=== PATIENT | male | born 1995 | race Caucasian/White ===

== ENCOUNTER 2018-02-03 17:32 | Emergency (ER) | payer SELFPAY ==
--- NOTE | 2018-02-03 18:43 | RAD ---
THREE VIEWS OF THE LEFT FOOT: 02/03/18 HISTORY: Left foot injury. FINDINGS: The Lisfranc joint is normally aligned. There is no evidence of a fracture, dislocation, or other oss eous abnormality involving the left foot. IMPRESSION: No acute osseous abnormality. POS: [facility]
== END 2018-02-03 18:55 | disposition home or self-care (01) ==
LOC: SCSER 17:32
DX: S93.602A Unspecified sprain of left foot, initial encounter (principal); R73.03 Prediabetes; F43.10 Post-traumatic stress disorder, unspecified; F17.220 Nicotine dependence, chewing tobacco, uncomplicated; X50.1XXA Overexertion from prolonged static or awkward postures, initial encounter